=== PATIENT | female | born 1950 | race Caucasian/White ===

== ENCOUNTER → 2016-06-16 | Outpatient (REF) | payer BC | LOC: M SFHCCLAY 09:24 | PROVIDERS: ATTEND Family Medicine | DX: Z00.00 Encounter for general adult medical examination without abnormal findings (principal); Z11.59 Encounter for screening for other viral diseases ==

== ENCOUNTER → 2016-09-01 | Outpatient (REF) | payer BC | LOC: M SFHCCLAY 10:45 | PROVIDERS: ATTEND Family Medicine | DX: E03.9 Hypothyroidism, unspecified (principal); I10 Essential (primary) hypertension; E78.2 Mixed hyperlipidemia; Z53.9 Procedure and treatment not carried out, unspecified reason ==

== ENCOUNTER → 2016-09-08 | Outpatient (REF) | payer BC ==
[2016-09-08 11:35] LABS: ALBUMIN 4.1 GM/DL (3.2-5.2); ALBUMIN/GLOBULIN RATIO 1.28 (1.00-1.93); ALKALINE PHOSPHATASE 21 U/L (45-117); ALT/SGPT 34 U/L (12-78); ANION GAP 7 MEQ/L (8-16); AST/SGOT 23 U/L (15-37); BILIRUBIN,TOTAL 0.4 MG/DL (0.2-1.0); BLOOD UREA NITROGEN 17 MG/DL (7-18); CALCIUM LEVEL 9.2 MG/DL (8.8-10.2); CARBON DIOXIDE LEVEL 28 MEQ/L (21-32); CHLORIDE LEVEL 105 MEQ/L (98-107); CHOLESTEROL LEVEL 191 MG/DL (<200); CREATININE FOR GFR 0.87 MG/DL (0.55-1.02); FREE T4 1.11 NG/DL (0.76-1.46); GLOMERULAR FILTRATION RATE > 60.0 (>45); GLUCOSE, FASTING 92 MG/DL (80-110); POTASSIUM SERUM 4.5 MEQ/L (3.5-5.1); SODIUM LEVEL 140 MEQ/L (136-145); TOTAL PROTEIN 7.3 GM/DL (6.4-8.2); TRIGLYCERIDES LEVEL 227 MG/DL (<150)
== END ==
LOC: M SFHCCLAY 08:00
PROVIDERS: ATTEND Family Medicine
DX: E03.9 Hypothyroidism, unspecified (principal); I10 Essential (primary) hypertension; E78.2 Mixed hyperlipidemia

== ENCOUNTER → 2017-07-21 | Outpatient (CLI) | payer OTHER | LOC: M RAD 09:57 | DX: Z12.31 Encounter for screening mammogram for malignant neoplasm of breast (principal) | CPT/HCPCS: 77067 ==

== ENCOUNTER → 2017-11-01 | Outpatient (REF) | payer OTHER ==
[2017-11-01 16:50] LABS: ALBUMIN 3.9 GM/DL (3.2-5.2); ALBUMIN/GLOBULIN RATIO 1.18 (1.00-1.93); ALKALINE PHOSPHATASE 26 U/L (45-117); ALT/SGPT 29 U/L (12-78); ANION GAP 7 MEQ/L (8-16); AST/SGOT 18 U/L (7-37); BILIRUBIN,TOTAL 0.4 MG/DL (0.2-1.0); BLOOD UREA NITROGEN 18 MG/DL (7-18); CALCIUM LEVEL 8.5 MG/DL (8.8-10.2); CARBON DIOXIDE LEVEL 25 MEQ/L (21-32); CHLORIDE LEVEL 109 MEQ/L (98-107); CHOLESTEROL LEVEL 146 MG/DL (<200); CHOLESTEROL RISK RATIO 3.842 (<5); CREATININE FOR GFR 0.68 MG/DL (0.55-1.30); FREE T4 1.61 NG/DL (0.76-1.46); GLOMERULAR FILTRATION RATE > 60.0 (>45); GLUCOSE, FASTING 85 MG/DL (70-100); HDL CHOLESTEROL 38 MG/DL (>40); NON-HDL-C 108 MG/DL; POTASSIUM SERUM 4.7 MEQ/L (3.5-5.1); SODIUM LEVEL 141 MEQ/L (136-145); THYROID STIMULATING HORMONE 0.056 uIU/ML (0.358-3.740); TOTAL PROTEIN 7.2 GM/DL (6.4-8.2); TRIGLYCERIDES LEVEL 180 MG/DL (<150)
== END ==
LOC: M SFHCCLAY 08:18
DX: I10 Essential (primary) hypertension (principal); E03.9 Hypothyroidism, unspecified
CPT/HCPCS: 84443

== ENCOUNTER → 2018-07-24 | Outpatient (CLI) | payer MEDICARE ==
--- NOTE | 2018-07-24 13:03 | REPMRS ---
Patient History The patient states she has not had a clinical breast exam in over a year. Family history of breast cancer at age 50 or over in maternal aunt. Digital Mammo Screening Bilat: July 24, 2018 - Exam #: [id number] Bilateral CC and MLO view(s) were taken. Technologist: Edwina Thomas, Technologist Prior study comparison: July 21, 2017, bilateral digital mammo screening bilat performed at [facility]. March 13, 2014, bilateral digital mammo screening bilat performed at [facility]. March 06, 2013, bilateral digital mammo screening bilat performed at [facility]. FINDINGS: The breast tissue is heterogeneously dense. This may lower the sensitivity of mammography. There is a moderate amount of heterogeneously dense fibroglandular tissue which is fairly symmetric. There is no interval development of dominant mass, architectural distortion, or clustered microcalcification typical of malignancy. There has been no change in the appearance of the mammogram from the prior studies. 3-D tomosynthesis shows no additional findings. Assessment: BI-RADS/ACR category 1 mammogram. Negative Mammogram. Recommendation Routine screening mammogram of both breasts in 1 year (for women over age 40). This patient's Lifetime Breast Cancer RIsk is estimated at 7.4 %. This mammogram was interpreted with the aid of an FDA-approved computer-aided dectection system. Electronically Signed By: Loki Avila MD 07/24/18 1149
== END ==
LOC: M RAD 10:44
PROVIDERS: ATTEND Family Medicine
DX: Z12.31 Encounter for screening mammogram for malignant neoplasm of breast (principal)

== ENCOUNTER → 2018-09-18 | Outpatient (CLI) | payer MEDICARE ==
--- NOTE | 2018-09-19 09:53 | DEXA ---
AP SPINE L1 - L4 1.164 -0.2 1.4 LT FEMUR TOTAL 0.985 -0.2 1.1 LT NECK 0.966 -0.5 1.0 RT FEMUR TOTAL 0.974 -0.3 1.0 RT NECK 0.924 -0.8 0.7 TOTAL BODY TOTAL OTHER COMMENTS: Normal bone densitometry of the spine and hips. FOLLOW-UP: Recommendation for the next bone density exam: 5 years. GINNAD
== END ==
LOC: M WHC 11:17
PROVIDERS: ATTEND Family Medicine
DX: Z78.0 Asymptomatic menopausal state (principal)

== ENCOUNTER → 2018-11-02 | Outpatient (REF) | payer MEDICARE ==
[2018-11-02 12:25] LABS: CHOLESTEROL RISK RATIO 3.215 (<5); FREE T4 1.13 NG/DL (0.76-1.46); THYROID STIMULATING HORMONE 5.96 uIU/ML (0.358-3.740)
== END ==
LOC: M SFHCCLAY 09:30
PROVIDERS: ATTEND Family Medicine
DX: E78.2 Mixed hyperlipidemia (principal); D47.3 Essential (hemorrhagic) thrombocythemia
CPT/HCPCS: 80061; 84439; 84443; G0463

== ENCOUNTER → 2019-01-18 | Outpatient (REF) | payer MEDICARE | LOC: M LAB REF 11:33 | PROVIDERS: ATTEND Ophthalmology | DX: H02.831 Dermatochalasis of right upper eyelid (principal); H02.834 Dermatochalasis of left upper eyelid ==

== ENCOUNTER → 2019-08-10 | Outpatient (REF) | payer OTHER ==
[2019-08-10 11:34] LABS: BASO # 0.1 10^3/uL (0.0-0.2); BASO % 1.3 % (0.0-1.0); EOS # 0.1 10^3/uL (0.0-0.5); EOS % 1.1 % (0.0-3.0); HEMATOCRIT 37.2 % (36.0-47.0); HEMOGLOBIN 12.3 g/dl (12.0-15.5); LYMPH # 1.4 10^3/uL (1.5-5.0); LYMPH % 31.8 % (24.0-44.0); MEAN CORPUSCULAR HGB CONC 33.1 g/dl (32.0-36.5); MONO # 0.6 10^3/uL (0.0-0.8); NEUTROPHILS # 2.3 10^3/uL (1.5-8.5); NEUTROPHILS % 51.3 % (36.0-66.0); PLATELET COUNT, AUTOMATED 515 10^3/uL (150-450); RED BLOOD COUNT 3.24 10^6/uL (4.00-5.40); WHITE BLOOD COUNT 4.5 10^3/uL (4.0-10.0)
[2019-08-10 11:39] LABS: MEAN CORPUSCULAR VOLUME 114.8 fl (80.0-96.0)
[2019-08-10 12:02] LABS: PLATELET ESTIMATE INCREASED (NORMAL)
== END ==
LOC: M LABDRAWC 11:21
PROVIDERS: ATTEND Physician Assistant Medical
DX: D47.3 Essential (hemorrhagic) thrombocythemia (principal)

== ENCOUNTER → 2019-08-10 | Outpatient (REF) | payer OTHER ==
[2019-08-10 11:48] LABS: ALBUMIN 3.9 GM/DL (3.2-5.2); ALT/SGPT 25 U/L (12-78); BILIRUBIN,TOTAL 0.3 MG/DL (0.2-1.0); BLOOD UREA NITROGEN 18 MG/DL (7-18); CALCIUM LEVEL 9.1 MG/DL (8.8-10.2); CARBON DIOXIDE LEVEL 26 MEQ/L (21-32); CHLORIDE LEVEL 105 MEQ/L (98-107); CHOLESTEROL LEVEL 176 MG/DL (<200); CHOLESTEROL RISK RATIO 4.631 (<5); CREATININE FOR GFR 0.81 MG/DL (0.55-1.30); FREE T4 1.31 NG/DL (0.76-1.46); GLOMERULAR FILTRATION RATE > 60.0 (>45); GLUCOSE, FASTING 104 MG/DL (70-100); HDL CHOLESTEROL 38 MG/DL (>40); LDL CHOLESTEROL 98 MG/DL (<100); NON-HDL-C 138 MG/DL; POTASSIUM SERUM 4.7 MEQ/L (3.5-5.1); SODIUM LEVEL 136 MEQ/L (136-145); TOTAL PROTEIN 7.7 GM/DL (6.4-8.2); TRIGLYCERIDES LEVEL 202 MG/DL (<150)
== END ==
LOC: M SFHCCLAY 08:27
PROVIDERS: ATTEND Family Medicine
DX: E03.9 Hypothyroidism, unspecified (principal); I10 Essential (primary) hypertension; E78.2 Mixed hyperlipidemia; D47.3 Essential (hemorrhagic) thrombocythemia

== ENCOUNTER → 2019-09-24 | Outpatient (CLI) | payer OTHER ==
--- NOTE | 2019-09-24 10:37 | REPMRS ---
Patient History The patient states she has not had a clinical breast exam in over a year. Family history of breast cancer at age 50 or over in maternal aunt. Taking unspecified hormones for 2 years. 3D TOMOSYNTHESIS WAS PERFORMED. The Mauro Molina lifetime risk for breast cancer is 7.0%. VOLPARA DENSITY B. Digital Woman Screen Mammo: September 24, 2019 - Exam #: [id number] Bilateral CC and MLO view(s) were taken. Technologist: Angela Yu, Technologist Prior study comparison: July 24, 2018, bilateral digital mammo screening bilat, performed at [facility]. July 21, 2017, bilateral digital mammo screening bilat, performed at [facility]. FINDINGS: The breast tissue is heterogeneously dense. This may lower the sensitivity of mammography. There has been no change in the appearance of the mammogram from the prior studies. There is a moderate amount of residual fibroglandular tissue which is fairly symmetric. There is no interval development of dominant mass, areas of architectural distortion, or clustered microcalcification typical of malignancy. Assessment: BI-RADS/ACR category 1 mammogram. Negative Mammogram. Recommendation Routine screening mammogram in 1 year (for women over age 40). This mammogram was interpreted with the aid of an FDA-approved computer-aided dectection system. Electronically Signed By: Ari Escalante MD 09/24/19 [id number]
== END ==
LOC: M WHC 09:46
PROVIDERS: ATTEND Family Medicine
DX: Z12.31 Encounter for screening mammogram for malignant neoplasm of breast (principal); Z80.3 Family history of malignant neoplasm of breast

== ENCOUNTER → 2020-03-04 | Outpatient (REF) | payer OTHER | LOC: M LAB REF 16:41 | PROVIDERS: ATTEND Surgery | DX: L72.3 Sebaceous cyst (principal) ==

== ENCOUNTER → 2020-05-08 | Outpatient (REF) | payer OTHER ==
[2020-05-08 12:48] LABS: BLOOD UREA NITROGEN 16 MG/DL (7-18); CALCIUM LEVEL 9.4 MG/DL (8.8-10.2); CARBON DIOXIDE LEVEL 29 MEQ/L (21-32); CHLORIDE LEVEL 103 MEQ/L (98-107); CREATININE FOR GFR 0.87 MG/DL (0.55-1.30); GLOMERULAR FILTRATION RATE > 60.0 (>45); GLUCOSE, FASTING 101 MG/DL (70-100); POTASSIUM SERUM 4.6 MEQ/L (3.5-5.1); SODIUM LEVEL 136 MEQ/L (136-145)
[2020-05-08 12:55] LABS: HEMOGLOBIN A1c 5.7 %
== END ==
LOC: M SFHCCLAY 08:59
PROVIDERS: ATTEND Family Medicine
DX: R73.01 Impaired fasting glucose (principal)

== ENCOUNTER → 2020-07-17 | Outpatient (CLI) | payer OTHER ==
--- NOTE | 2020-07-17 13:21 | REP ---
INDICATION: M18.11 COMPARISON: None. TECHNIQUE: There are four views of the right hand and four views of the left hand. FINDINGS: Right hand: There is joint space narrowing of the PIP and DIP articulations and of the thumb CMC articulation, compatible with early osteoarthritis. Mineralization is normal. The MCP articulations are unremarkable. Carpal articulations are unremarkable. There are no calcifications. Left hand: There is joint space narrowing of the PIP and DIP articulations and of the thumb CMC articulation, compatible with early osteoarthritis. The MCP articulations are unremarkable. The carpal articulations are unremarkable. There are no calcifications. IMPRESSION: Early osteoarthritic changes bilaterally, as described <Electronically signed by Ari Alvarenga > 07/17/20 [id number]
== END ==
LOC: M CLY 11:56
PROVIDERS: ATTEND Family Medicine
DX: M18.0 Bilateral primary osteoarthritis of first carpometacarpal joints (principal)
CPT/HCPCS: 73130; G0463

== ENCOUNTER → 2020-09-29 | Outpatient (CLI) | payer OTHER ==
--- NOTE | 2020-09-29 10:52 | REPMRS ---
Patient History The patient states she has not had a clinical breast exam in over a year. Family history of breast cancer at age 50 or over in maternal aunt. Taking unspecified hormones for 3 years. Pfizer vaccine 06/27/20 left arm. 07/18/20 left arm. Patient states no breast complaints today. Patient has signed MRS History Sheet. Digital Woman Screen Mammo: September 29, 2020 - Exam #: [id number] Bilateral CC and MLO view(s) were taken. Technologist: RT Trip Prior study comparison: September 24, 2019, bilateral digital woman screen mammo performed at [facility]. July 24, 2018, bilateral digital mammo screening bilat, performed at [facility]. FINDINGS: The breast tissue is heterogeneously dense. This may lower the sensitivity of mammography. Screening. Digital screening (2D) mammography was performed bilaterally in the CC and MLO projections. Additionally, breast tomosynthesis (3D mammography) was performed bilaterally in the CC and MLO projections. Todays exam was compared to the prior exam/exams. By history, the patient has no complaints of a palpable breast abnormality or other significant breast complaints. The breasts are unchanged in size and shape.Once again, dense heterogenous fibroglandular elements are seen bilaterally in a stable appearing pattern but to such a degree that the sensitivity of the mammogram in detecting cancer is decreased. There are no hayley-soft tissue densities or spiculated masses. There is no internal architectural distortion.Once again, stable benign appearing calcifications are seen. There are no suspicious hayley-calcific clusters. Skin thickening or nipple retraction is not present. IMPRESSION: BI-RADS Category 2- Benign Findings. There is no evidence of malignant alteration of the breasts. Followup examination recommended in one year. The Volpara volumetric breast density category is C, the breasts are heterogenously dense which may obscure small masses. This mammogram was read with the assistance of [employer],an FDA approved computer aided detection system for mammography. The lifetime Tyrer-Cuzick score is 6.6 % Negative x-ray reports should not delay surgical consultation if a dominant or clinically suspicious mass is present. Not all breast cancers can be identified by mammography. Therefore, we recommend that you continue to perform regular breast self-examination and physical examination and then promptly contact your physician of any concerns or changes. Adenosis and dense breasts may obscure an underlying neoplasm. Assessment: BI-RADS/ACR category 2 mammogram. Benign Findings. Recommendation Routine screening mammogram of both breasts in 1 year. Electronically Signed By: Pipo Harrington DO 09/29/20 1053
== END ==
LOC: M WHC 09:24
PROVIDERS: ATTEND Family Medicine
DX: Z12.31 Encounter for screening mammogram for malignant neoplasm of breast (principal); Z80.3 Family history of malignant neoplasm of breast; R92.1 Mammographic calcification found on diagnostic imaging of breast

== ENCOUNTER → 2020-10-09 | Outpatient (CLI) | payer OTHER ==
[~2020-10-09] MED LIST: ISOVUE-300 61% 50ML VIAL As Ordered ONE; LIDOCAINE 1% MDV 20ML VIAL As Ordered ONE; methylPREDNISolone SUSP 40MG/ML 1ML VIAL (DEPO MEDROL) As Ordered ONE
--- NOTE | 2020-10-09 12:22 | REP ---
INDICATION: OA OF LT HAND. COMPARISON: None TECHNIQUE: The procedure was performed by NIMCO Rosen, under the direct supervision of Dr. Escalante. The benefits and risks of the procedure were explained to the patient, and an informed consent was obtained. Directly prior to the start of the procedure, a formal time-out was completed in the procedure room. The left 1st CMC joint space was localized using fluoroscopic guidance. The skin was prepped and draped in a sterile fashion. Approximately 1 mL of 1% Lidocaine 10 mg/ml was used as a local anesthetic. Using fluoroscopic guidance, the same 25 gauge needle used to inject lidocaine was advanced into the left 1st CMC joint space. Approximately 0 0.25 mL of Isovue 300 was injected to verify placement. One mL of a solution containing 0.5 mL 1% lidocaine 10 mg/ml and 0.5 mL Depo-Medrol 40 milligrams/milliliter was injected into the joint space. The needle was removed and hemostasis was achieved. FINDINGS: The patient tolerated the procedure well and there were no immediate complications. IMPRESSION: 1. Fluoroscopically guided intra-articular left 1st CMC joint injection. 0.1 minutes of fluoroscopy time was utilized for this procedure. Some fluoroscopic images are performed with last image hold technology. These images require no additional radiation. <Electronically signed by Kamilla Sanders > 10/09/20 1028 <Electronically signed by Ari Escalante > 10/09/20 1218
== END ==
LOC: M RADPRO 09:15
PROVIDERS: ATTEND Orthopaedic Surgery Sports Medicine
DX: M19.042 Primary osteoarthritis, left hand (principal)
CPT/HCPCS: 20600; 77002; J1030; Q9967

== ENCOUNTER → 2021-03-09 | Outpatient (REF) | payer OTHER ==
[2021-03-09 12:14] LABS: ALBUMIN 3.8 GM/DL (3.2-5.2); ALT/SGPT 35 U/L (12-78); BILIRUBIN,TOTAL 0.3 MG/DL (0.2-1.0); BLOOD UREA NITROGEN 18 MG/DL (7-18); CALCIUM LEVEL 9.1 MG/DL (8.8-10.2); CARBON DIOXIDE LEVEL 28 MEQ/L (21-32); CHLORIDE LEVEL 107 MEQ/L (98-107); CHOLESTEROL LEVEL 209 MG/DL (<200); CREATININE FOR GFR 0.79 MG/DL (0.55-1.30); FREE T4 1.07 NG/DL (0.76-1.46); GLOMERULAR FILTRATION RATE > 60.0 (>45); GLUCOSE, FASTING 100 MG/DL (70-100); HDL CHOLESTEROL 44 MG/DL (>40); LDL CHOLESTEROL 127 MG/DL (<100); NON-HDL-C 165 MG/DL; POTASSIUM SERUM 5.3 MEQ/L (3.5-5.1); SODIUM LEVEL 140 MEQ/L (136-145); TOTAL PROTEIN 7.5 GM/DL (6.4-8.2); TRIGLYCERIDES LEVEL 189 MG/DL (<150)
== END ==
LOC: M SFHCCLAY 09:09
PROVIDERS: ATTEND Family Medicine
DX: E78.2 Mixed hyperlipidemia (principal); I10 Essential (primary) hypertension; D47.3 Essential (hemorrhagic) thrombocythemia

== ENCOUNTER → 2021-05-25 | Outpatient (REF) | payer OTHER ==
[2021-05-25 16:40] LABS: HEMATOCRIT 36.8 % (36.0-47.0); MEAN CORPUSCULAR HGB CONC 32.6 g/dl (32.0-36.5); PLATELET COUNT, AUTOMATED 507 10^3/uL (150-450); RED BLOOD COUNT 3.08 10^6/uL (4.00-5.40); WHITE BLOOD COUNT 5.5 10^3/uL (4.0-10.0)
[2021-05-25 16:41] LABS: MEAN CORPUSCULAR VOLUME 119.5 fl (80.0-96.0)
[2021-05-25 17:27] LABS: CALCIUM LEVEL 9.6 MG/DL (8.8-10.2); CREATININE FOR GFR 0.99 MG/DL (0.55-1.30); FREE T4 1.12 NG/DL (0.76-1.46); GLOMERULAR FILTRATION RATE 59.2 (>45); POTASSIUM SERUM 5.9 MEQ/L (3.5-5.1); THYROID STIMULATING HORMONE 4.69 uIU/ML (0.358-3.740)
== END ==
LOC: M SFHCCLAY 09:38
PROVIDERS: ATTEND Family Medicine
DX: R53.82 Chronic fatigue, unspecified (principal)

== ENCOUNTER → 2021-06-02 | Outpatient (REF) | payer OTHER ==
[2021-06-02 16:42] LABS: POTASSIUM SERUM 5.2 MEQ/L (3.5-5.1)
[2021-06-02 17:02] LABS: FOLATE 17.7 NG/ML (>5.4)
== END ==
LOC: M SFHCCLAY 12:51
PROVIDERS: ATTEND Family Medicine
DX: D53.9 Nutritional anemia, unspecified (principal)

== ENCOUNTER → 2021-10-15 | Outpatient (CLI) | payer OTHER | LOC: M WHC 09:03 | PROVIDERS: ATTEND Family Medicine | DX: Z12.31 Encounter for screening mammogram for malignant neoplasm of breast (principal) ==

== ENCOUNTER → 2022-06-09 | Outpatient (REF) | payer OTHER ==
[2022-06-09 11:49] LABS: HEMOGLOBIN A1c 5.4 % (4.0-6.0)
[2022-06-09 11:51] LABS: ALBUMIN 3.7 G/DL (3.2-5.2); ALKALINE PHOSPHATASE 25 U/L (46-116); ALT/SGPT 28 U/L (7.0-40); APPEARANCE, URINE CLOUDY (CLEAR); AST/SGOT 29 U/L (<34); BACTERIA, URINE AUTO 1+ (NEGATIVE); BILIRUBIN, URINE AUTO NEGATIVE (NEGATIVE); BILIRUBIN,TOTAL 0.3 MG/DL (0.3-1.2); BLOOD UREA NITROGEN 26 MG/DL (9-23); BLOOD, URINE BLOOD NEGATIVE (NEGATIVE); CALCIUM LEVEL 9.7 MG/DL (8.3-10.6); CALCIUM OXALATE CRYSTALS SMALL; CARBON DIOXIDE LEVEL 26 MMOL/L (20-31); CHLORIDE LEVEL 106 MMOL/L (98-107); CHOLESTEROL LEVEL 187 MG/DL (<200); CHOLESTEROL RISK RATIO 4.72 (<5); COLOR, URINE AMBER (YELLOW); CREATININE FOR GFR 0.81 MG/DL (0.55-1.30); FREE T4 1.18 NG/DL (0.89-1.76); GLOMERULAR FILTRATION RATE > 60.0 (>39); GLUCOSE, FASTING 91 MG/DL (74-106); GLUCOSE, URINE (UA) AUTO NEGATIVE (NEGATIVE); HDL CHOLESTEROL 39.6 MG/DL (>40); KETONE, URINE AUTO TRACE mg/dL (NEGATIVE); LEUKOCYTE ESTERASE, URINE AUTO 1+ (NEGATIVE); MUCUS, URINE SMALL (NEGATIVE); NITRITE, URINE AUTO NEGATIVE (NEGATIVE); NON-HDL-C 147 MG/DL; POTASSIUM SERUM 4.6 MMOL/L (3.5-5.1); PROTEIN, URINE AUTO 1+ mg/dL (NEGATIVE); RBC, URINE AUTO 1 /HPF (0-3); SODIUM LEVEL 140 MMOL/L (136-145); SPECIFIC GRAVITY URINE AUTO 1.032 (1.002-1.035); SQUAMOUS EPITHELIAL CELL UR AU 27 /HPF (0-6); THYROID STIMULATING HORMONE 3.645 uIU/ML (0.55-4.78); WBC, URINE AUTO 5 /HPF (0-3)
[2022-06-09 12:17] LABS: HEMATOCRIT 33.1 % (36.0-47.0); HEMOGLOBIN 10.9 g/dl (12.0-15.5); MEAN CORPUSCULAR HEMOGLOBIN 39.9 pg (27.0-33.0); MEAN CORPUSCULAR HGB CONC 32.9 g/dl (32.0-36.5); RED BLOOD COUNT 2.73 10^6/uL (4.00-5.40); WHITE BLOOD COUNT 5.4 10^3/uL (4.0-10.0)
[2022-06-09 12:19] LABS: MEAN CORPUSCULAR VOLUME 121.2 fl (80.0-96.0); PLATELET COUNT, AUTOMATED 510 10^3/uL (150-450)
[2022-06-09 18:34] LABS: LDL CHOLESTEROL 82.8 MG/DL (<100); TOTAL PROTEIN 7.1 G/DL (5.7-8.2); TRIGLYCERIDES LEVEL 323 MG/DL (<150)
== END ==
LOC: M SFHCCLAY 08:29
PROVIDERS: ATTEND Family Medicine
DX: E78.2 Mixed hyperlipidemia (principal); I10 Essential (primary) hypertension; D47.3 Essential (hemorrhagic) thrombocythemia; R53.82 Chronic fatigue, unspecified; R73.01 Impaired fasting glucose

== ENCOUNTER → 2022-11-23 | Outpatient (CLI) | payer OTHER | LOC: M WHC 08:46 | PROVIDERS: ATTEND Family Medicine | DX: Z12.31 Encounter for screening mammogram for malignant neoplasm of breast (principal) ==

== ENCOUNTER → 2023-06-23 | Outpatient (CLI) | payer OTHER | LOC: M CLY 13:33 | PROVIDERS: ATTEND Family Medicine | DX: R06.09 Other forms of dyspnea (principal) ==

== ENCOUNTER → 2023-06-23 | Outpatient (CLI) | payer OTHER | LOC: M CLY 14:23 | PROVIDERS: ATTEND Family Medicine | DX: R06.09 Other forms of dyspnea (principal) ==

== ENCOUNTER → 2023-06-24 | Outpatient (REF) | payer OTHER ==
[2023-06-24 11:50] LABS: APPEARANCE, URINE CLOUDY (CLEAR); BACTERIA, URINE AUTO NEGATIVE (NEGATIVE); BILIRUBIN, URINE AUTO NEGATIVE (NEGATIVE); BLOOD, URINE BLOOD NEGATIVE (NEGATIVE); COLOR, URINE AMBER (YELLOW); GLUCOSE, URINE (UA) AUTO NEGATIVE (NEGATIVE); KETONE, URINE AUTO NEGATIVE (NEGATIVE); LEUKOCYTE ESTERASE, URINE AUTO NEGATIVE (NEGATIVE); NITRITE, URINE AUTO NEGATIVE (NEGATIVE); PROTEIN, URINE AUTO 1+ mg/dL (NEGATIVE); RBC, URINE AUTO 1 /HPF (0-3); SPECIFIC GRAVITY URINE AUTO 1.025 (1.002-1.035); SQUAMOUS EPITHELIAL CELL UR AU 46 /HPF (0-6); UROBILINOGEN, URINE AUTO 0.2 mg/dL (0.0-2.0); WBC, URINE AUTO 0 /HPF (0-3)
[2023-06-24 12:22] LABS: BASO # 0.1 10^3/uL (0.0-0.2); BASO % 1.7 % (0.0-1.0); EOS # 0.1 10^3/uL (0.0-0.5); EOS % 2.4 % (0.0-3.0); HEMATOCRIT 32.1 % (36.0-47.0); HEMOGLOBIN 10.5 g/dl (12.0-15.5); LYMPH # 1.2 10^3/uL (1.5-5.0); LYMPH % 29.3 % (24.0-44.0); MEAN CORPUSCULAR HEMOGLOBIN 40.5 pg (27.0-33.0); MEAN CORPUSCULAR HGB CONC 32.7 g/dl (32.0-36.5); MONO # 0.7 10^3/uL (0.0-0.8); MONO % 15.8 % (2.0-8.0); NEUTROPHILS # 2.1 10^3/uL (1.5-8.5); NEUTROPHILS % 49.6 % (36.0-66.0); PLATELET COUNT, AUTOMATED 479 10^3/uL (150-450); RED BLOOD COUNT 2.59 10^6/uL (4.00-5.40); WHITE BLOOD COUNT 4.2 10^3/uL (4.0-10.0)
[2023-06-24 12:32] LABS: MEAN CORPUSCULAR VOLUME 123.9 fl (80.0-96.0)
[2023-06-24 12:38] LABS: IRON (FE) 68 UG/DL (50-170); PERCENT SATURATION 20.4 % (13.2-45.0); TOTAL IRON BINDING CAPACITY 333 UG/DL (250-425)
[2023-06-24 12:39] LABS: ALBUMIN 3.7 G/DL (3.2-5.2); ALKALINE PHOSPHATASE 21 U/L (46-116); ALT/SGPT 28 U/L (7.0-40); AST/SGOT 25 U/L (<34); BILIRUBIN,TOTAL 0.3 MG/DL (0.3-1.2); BLOOD UREA NITROGEN 23 MG/DL (9-23); CALCIUM LEVEL 8.6 MG/DL (8.3-10.6); CARBON DIOXIDE LEVEL 26 MMOL/L (20-31); CHLORIDE LEVEL 108 MMOL/L (98-107); CHOLESTEROL LEVEL 194 MG/DL (<200); CREATININE FOR GFR 0.93 MG/DL (0.55-1.30); GLOMERULAR FILTRATION RATE > 60.0 (>39); GLUCOSE, FASTING 113 MG/DL (74-106); HDL CHOLESTEROL 40.4 MG/DL (>40); NON-HDL-C 153.6 MG/DL; POTASSIUM SERUM 4.7 MMOL/L (3.5-5.1); SODIUM LEVEL 139 MMOL/L (136-145); TOTAL PROTEIN 7.1 G/DL (5.7-8.2); TRIGLYCERIDES LEVEL 248 MG/DL (<150)
[2023-06-24 12:40] LABS: THYROID STIMULATING HORMONE 8.416 uIU/ML (0.55-4.78)
== END ==
LOC: M SFHCCLAY 08:39
PROVIDERS: ATTEND Family Medicine
DX: I10 Essential (primary) hypertension (principal); F33.9 Major depressive disorder, recurrent, unspecified; E78.2 Mixed hyperlipidemia; L80 Vitiligo; D64.9 Anemia, unspecified; E03.9 Hypothyroidism, unspecified

== ENCOUNTER → 2023-07-14 | Outpatient (REF) | payer OTHER | LOC: M SFHCCLAY 09:44 | PROVIDERS: ATTEND Family Medicine | DX: E87.5 Hyperkalemia (principal) ==

== ENCOUNTER → 2023-07-20 | Outpatient (REF) | payer OTHER ==
[2023-07-20 18:11] LABS: POTASSIUM SERUM 5.1 MMOL/L (3.5-5.1)
[2023-07-20 18:23] LABS: CORTISOL AM 15.3 UG/DL (4.3-22.4)
== END ==
LOC: M SFHCCLAY 10:44
PROVIDERS: ATTEND Family Medicine
DX: E87.5 Hyperkalemia (principal)

== ENCOUNTER → 2023-11-11 | Outpatient (REF) | payer OTHER ==
[2023-11-11 18:51] LABS: ESTRADIOL 65.4 PG/ML; FOLLICLE STIMULATING HORMONE 22.2 mIU/ML
[2023-11-11 18:52] LABS: PROGESTERONE < 0.21 NG/ML
[2023-11-14 09:54] LABS: LUTEINIZING HORMONE 9.1 mIU/ML
== END ==
LOC: M LABDRAWC 17:01
PROVIDERS: ATTEND Obstetrics & Gynecology
DX: N95.1 Menopausal and female climacteric states (principal); E34.9 Endocrine disorder, unspecified; F52.0 Hypoactive sexual desire disorder

== ENCOUNTER → 2023-12-09 | Outpatient (CLI) | payer OTHER | LOC: M WHC 14:51 | PROVIDERS: ATTEND Family Medicine | DX: Z12.31 Encounter for screening mammogram for malignant neoplasm of breast (principal); R92.333 Mammographic heterogeneous density, bilateral breasts ==

== ENCOUNTER → 2024-03-07 | Outpatient (CLI) | payer OTHER | LOC: M WHC 08:33 | PROVIDERS: ATTEND Family Medicine | DX: Z78.0 Asymptomatic menopausal state (principal) ==

== ENCOUNTER → 2024-03-23 | Outpatient (REF) | payer OTHER ==
[2024-03-23 18:11] LABS: RSV AMPLIFICATION NEGATIVE (NEGATIVE)
== END ==
LOC: M SFHCCLAY 16:44
PROVIDERS: ATTEND Physician Assistant
DX: R05.1 Acute cough (principal)

== ENCOUNTER → 2024-03-23 | Outpatient (CLI) | payer OTHER | LOC: M CLY 11:17 | PROVIDERS: ATTEND Physician Assistant | DX: R05.1 Acute cough (principal) ==

== ENCOUNTER → 2024-03-29 | Outpatient (REF) | payer OTHER ==
[2024-03-29 18:25] LABS: ESTRADIOL 63.9 PG/ML
[2024-03-29 18:26] LABS: FOLLICLE STIMULATING HORMONE 17.5 mIU/ML; LUTEINIZING HORMONE 8.2 mIU/ML
[2024-03-29 18:28] LABS: PROGESTERONE < 0.21 NG/ML
[2024-04-06 13:13] LABS: TESTOSTERONE FREE (DIRECT) 9.2 pg/mL (0.2-3.7)
== END ==
LOC: M LAB REF 17:02
PROVIDERS: ATTEND Obstetrics & Gynecology
DX: N95.1 Menopausal and female climacteric states (principal); E34.9 Endocrine disorder, unspecified; F52.0 Hypoactive sexual desire disorder

== ENCOUNTER → 2024-06-29 | Outpatient (REF) | payer MEDICARE | LOC: M SFHCCLAY 11:11 | PROVIDERS: ATTEND Nurse Practitioner Family | DX: I10 Essential (primary) hypertension (principal); E78.2 Mixed hyperlipidemia; E03.9 Hypothyroidism, unspecified; F33.9 Major depressive disorder, recurrent, unspecified; K21.9 Gastro-esophageal reflux disease without esophagitis; D47.3 Essential (hemorrhagic) thrombocythemia; J30.2 Other seasonal allergic rhinitis ==

== ENCOUNTER → 2024-08-06 | Outpatient (REF) | payer MEDICARE ==
[2024-08-06 18:33] LABS: BASO # 0.2 10^3/uL (0.0-0.2); BASO % 2.8 % (0.0-1.0); EOS # 0.1 10^3/uL (0.0-0.5); EOS % 1.9 % (0.0-3.0); HEMATOCRIT 36.8 % (36.0-47.0); HEMOGLOBIN 11.9 g/dl (12.0-15.5); LYMPH # 1.6 10^3/uL (1.5-5.0); LYMPH % 27.7 % (24.0-44.0); MEAN CORPUSCULAR HEMOGLOBIN 36.6 pg (27.0-33.0); MEAN CORPUSCULAR HGB CONC 32.3 g/dl (32.0-36.5); MEAN CORPUSCULAR VOLUME 113.2 fl (80.0-96.0); MONO # 0.9 10^3/uL (0.0-0.8); MONO % 16.1 % (2.0-8.0); NEUTROPHILS # 2.9 10^3/uL (1.5-8.5); NEUTROPHILS % 50.4 % (36.0-66.0); PLATELET COUNT, AUTOMATED 699 10^3/uL (150-450); RED BLOOD COUNT 3.25 10^6/uL (4.00-5.40); WHITE BLOOD COUNT 5.7 10^3/uL (4.0-10.0)
== END ==
LOC: M LABDRAWC 17:04
PROVIDERS: ATTEND Internal Medicine Hematology & Oncology
DX: D47.3 Essential (hemorrhagic) thrombocythemia (principal)

== ENCOUNTER → 2024-09-03 | Outpatient (REF) | payer MEDICARE ==
[2024-09-03 18:43] LABS: BASO # 0.1 10^3/uL (0.0-0.2); BASO % 2.9 % (0.0-1.0); EOS # 0.1 10^3/uL (0.0-0.5); EOS % 2.1 % (0.0-3.0); HEMATOCRIT 33.4 % (36.0-47.0); LYMPH # 1.3 10^3/uL (1.5-5.0); LYMPH % 27.1 % (24.0-44.0); MEAN CORPUSCULAR HEMOGLOBIN 37.3 pg (27.0-33.0); MEAN CORPUSCULAR HGB CONC 32.9 g/dl (32.0-36.5); MEAN CORPUSCULAR VOLUME 113.2 fl (80.0-96.0); MONO # 0.9 10^3/uL (0.0-0.8); MONO % 18.1 % (2.0-8.0); NEUTROPHILS # 2.3 10^3/uL (1.5-8.5); PLATELET COUNT, AUTOMATED 546 10^3/uL (150-450); RED BLOOD COUNT 2.95 10^6/uL (4.00-5.40); WHITE BLOOD COUNT 4.8 10^3/uL (4.0-10.0)
== END ==
LOC: M LABDRAWC 17:48
PROVIDERS: ATTEND Internal Medicine Hematology & Oncology
DX: D47.3 Essential (hemorrhagic) thrombocythemia (principal)

== ENCOUNTER → 2024-12-13 | Outpatient (CLI) | payer MEDICARE ==
[~2024-12-13] MED LIST changes: +ASPI81TA26 PO; +ATOR40TA75 PO; +BIOT10TA2 PO; +CALCCAP4 PO; +CETI10TA4 PO; +COLON CLEANSE PO; +CYAN500T14 PO; +DULO60CA35 PO; +FENO160T10 PO; +FLON1SPR; +GING550C4 PO; +HYDR500C3 PO; +IBUP-1730 PO; -ISOVUE-300 61% 50ML VIAL As Ordered ONE; +KP F1200 PO; -LIDOCAINE 1% MDV 20ML VIAL As Ordered ONE; +MAGN250T7 PO; +METO1TAB7 PO; +MILK300C PO; +OMEP40CA5 PO; +OSTETAB2 PO; +RED500CA PO; +SYNT137T7 PO; +TURM500C10 PO; +VITA-243 PO; +VITA100093 PO; +VITA1CAP20 PO; +[UNRECOGNIZED DRUG - OTHER] PO; +[UNRECOGNIZED DRUG - OTHER] PO; -methylPREDNISolone SUSP 40MG/ML 1ML VIAL (DEPO MEDROL) As Ordered ONE
== END ==
LOC: M WHC 10:26
PROVIDERS: ATTEND Nurse Practitioner Family
DX: Z12.31 Encounter for screening mammogram for malignant neoplasm of breast (principal); R92.323 Mammographic fibroglandular density, bilateral breasts

== ENCOUNTER → 2024-12-24 | Outpatient (REF) | payer MEDICARE ==
[2024-12-24 19:14] LABS: LUTEINIZING HORMONE 15.6 mIU/ML
[2024-12-24 19:15] LABS: ESTRADIOL 46.4 PG/ML; PROGESTERONE < 0.21 NG/ML
== END ==
LOC: M LABDRAWC 17:59
PROVIDERS: ATTEND Obstetrics & Gynecology
DX: N95.1 Menopausal and female climacteric states (principal); E34.9 Endocrine disorder, unspecified; F52.0 Hypoactive sexual desire disorder

== ENCOUNTER → 2024-12-31 | Outpatient (REF) | payer MEDICARE ==
[2024-12-31 19:11] LABS: BASO # 0.1 10^3/uL (0.0-0.2); BASO % 2.6 % (0.0-1.0); EOS # 0.1 10^3/uL (0.0-0.5); EOS % 2.9 % (0.0-3.0); LYMPH # 1.1 10^3/uL (1.5-5.0); LYMPH % 26.1 % (24.0-44.0); MONO # 0.9 10^3/uL (0.0-0.8); MONO % 20.3 % (2.0-8.0); NEUTROPHILS # 2.0 10^3/uL (1.5-8.5); NEUTROPHILS % 46.9 % (36.0-66.0); PLATELET COUNT, AUTOMATED 632 10^3/uL (150-450)
[2024-12-31 19:39] LABS: PLATELET ESTIMATE INCREASED (NORMAL)
== END ==
LOC: M LABDRAWC 17:30
PROVIDERS: ATTEND Internal Medicine Hematology & Oncology
DX: D47.3 Essential (hemorrhagic) thrombocythemia (principal)

== ENCOUNTER → 2024-12-31 | Outpatient (REF) | payer MEDICARE ==
[2024-12-31 19:34] LABS: ALT/SGPT 20 U/L (7.0-40); AST/SGOT 22 U/L (<34); CALCIUM LEVEL 9.3 MG/DL (8.3-10.6); CARBON DIOXIDE LEVEL 24 MMOL/L (20-31); CHLORIDE LEVEL 105 MMOL/L (98-107); CHOLESTEROL LEVEL 250 MG/DL (<200); CHOLESTEROL RISK RATIO 6.06 (<5); CREATININE FOR GFR 1.00 MG/DL (0.55-1.30); GLOMERULAR FILTRATION RATE 59.9 (>39); NON-HDL-C 208.8 MG/DL; POTASSIUM SERUM 5.2 MMOL/L (3.5-5.1); SODIUM LEVEL 138 MMOL/L (136-145); TRIGLYCERIDES LEVEL 408 MG/DL (<150)
[2024-12-31 19:36] LABS: FREE T4 1.33 NG/DL (0.89-1.76)
== END ==
LOC: M SFHCCLAY 10:00
PROVIDERS: ATTEND Nurse Practitioner Family
DX: I10 Essential (primary) hypertension (principal); F33.9 Major depressive disorder, recurrent, unspecified; E78.2 Mixed hyperlipidemia; E03.9 Hypothyroidism, unspecified; D47.3 Essential (hemorrhagic) thrombocythemia

== ENCOUNTER → 2025-01-04 | Outpatient (REF) | payer MEDICARE ==
[2025-01-04 18:57] LABS: BASO # 0.2 10^3/uL (0.0-0.2); BASO % 2.4 % (0.0-1.0); EOS # 0.1 10^3/uL (0.0-0.5); EOS % 2.2 % (0.0-3.0); LYMPH # 1.5 10^3/uL (1.5-5.0); LYMPH % 23.7 % (24.0-44.0); MONO # 0.8 10^3/uL (0.0-0.8); MONO % 13.4 % (2.0-8.0); NEUTROPHILS # 3.6 10^3/uL (1.5-8.5); NEUTROPHILS % 57.3 % (36.0-66.0); PLATELET COUNT, AUTOMATED 745 10^3/uL (150-450)
[2025-01-04 19:18] LABS: IRON (FE) 90.0 UG/DL (50-170)
[2025-01-04 19:19] LABS: PERCENT SATURATION 25.5 % (13.2-45.0)
[2025-01-04 19:21] LABS: VITAMIN B12 LEVEL 423.0 PG/ML (211-911)
== END ==
LOC: M SFHCCLAY 10:22
PROVIDERS: ATTEND Nurse Practitioner Family
DX: G45.9 Transient cerebral ischemic attack, unspecified (principal); R00.2 Palpitations; R53.83 Other fatigue; E03.9 Hypothyroidism, unspecified; Z12.31 Encounter for screening mammogram for malignant neoplasm of breast; D64.9 Anemia, unspecified